=== PATIENT | male | born 1980 | race Caucasian/White ===

== ENCOUNTER 2021-05-07 07:47 | Emergency (ER) | payer MEDICAID ==
[~2021-05-07] VITALS: Ht 177.8 cm; Wt 85.0 kg
[2021-05-07] MEDS ORDERED: ACETAMINOPHEN 325MG TABLET PO STA (08:26)
[2021-05-07] MEDS ORDERED: SODIUM CHLORIDE 0.9% 1,000 ML IV ONE (08:30)
[2021-05-07 09:06] LABS: BASOPHILS % 0.5 % (0.0-2.0); EOSINOPHILS % 0.3 % (0.0-5.0); HEMATOCRIT. 44.6 % (42.0-52.0); HEMOGLOBIN. 15.3 g/dL (14.0-18.0); LYMPHOCYTES % 13.7 % (20.0-50.0); MEAN CORPUSCULAR HEMOGLOBIN 31.4 pg (28.0-32.0); MEAN CORPUSCULAR VOLUME 91.4 fL (80.0-94.0); MONOCYTES % 6.9 % (2.0-8.0); NEUTROPHILS % 78.6 % (40.0-76.0); PLATELET 112 x1000/uL (130-400); RED BLOOD CELL COUNT 4.89 mill/uL (4.7-6.1); RED CELL DISTRIBUTION WIDTH 13.1 % (11.6-14.6)
[2021-05-07 09:12] LABS: CHLORIDE 106 mEq/L (98-107)
[2021-05-07 09:16] LABS: PROTHROMBIN TIME 10.4 sec (9.6-11.0)
[2021-05-07] MEDS ORDERED: TETRACAINE 0.5% OPHTH DROPS 4ML RIGHTEYE ONE (09:30)
[2021-05-07] MEDS ORDERED: FLUORESCEIN SODIUM 1MG/STRIP RIGHTEYE ONE (09:30)
[2021-05-07] MEDS ORDERED: TETRACAINE 0.5% OPHTH DROPS 4ML RIGHTEYE NR (09:45)
[2021-05-07] MEDS ORDERED: FLUORESCEIN SODIUM 1MG/STRIP RIGHTEYE NR (09:45)
[2021-05-07] MEDS ORDERED: IBUP-2028 MT (11:38)
[2021-05-07 14:00] VITALS: BP 136/78
== END 2021-05-07 14:20 | disposition home or self-care (01) ==
LOC: ER 08:07
DX: S01.119A Laceration without foreign body of unspecified eyelid and periocular area, initial encounter (principal); H53.8 Other visual disturbances; M79.642 Pain in left hand; E11.65 Type 2 diabetes mellitus with hyperglycemia; F17.210 Nicotine dependence, cigarettes, uncomplicated; Y08.89XA Assault by other specified means, initial encounter; Y93.89 Activity, other specified; Y92.9 Unspecified place or not applicable
CPT/HCPCS: 12011; 36415; 70450; 70486; 71045; 72125; 73110; 73130; 80053; 85025; 85610; 96360; 96361; 99285; A4217; J7030; Z7610; A4565